=== PATIENT | female | born 1975 | race African-American/Black ===

== ENCOUNTER → 2018-06-10 | Day surgery (SDC) | payer OTHER ==
--- NOTE | 2018-06-14 14:24 | PATH ---
Surgical Pathology Report Patient Name: JOHANN DICKERSON [facility]. Rec. #: [id number] /Age/Gender: 1975 (Age: 43) / F Account: [id number] Location: [facility] Taken: 06/10/2018 Received: 06/10/2018 Reported: 06/11/2018 Physicians: Dodie Main MD Specimen(s) Received RIGHT BREAST MASS Clinical History Nonpalpable lesion Ultrasound findings: Probably benign Final Diagnosis RIGHT BREAST, 1.6 X 1.0 X 0.8 CM MASS, ULTRASOUND GUIDED CORE BIOPSY: BREAST TISSUE WITH HYALINIZED FIBROADENOMA. 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 Electronically Signed Myra Schreiber M.D. Gross Description Received in formalin labeled "right breast," are 4 giles-yellow, cylindrical portions of fibroadipose tissue ranging from 0.4-1.2 cm in length and averaging 0.1 cm in diameter. The specimens are submitted in toto in one cassette. Time to formalin fixation: Less than one minute Total formalin fixation time: Approximately 6 hours. /06/10/2018 saudi/06/10/2018
== END | disposition home or self-care (01) ==
LOC: JRADUS-SUR 10:59
PROVIDERS: ATTEND Family Medicine
PROC: 0HBT3ZX Excision of Right Breast, Percutaneous Approach, Diagnostic (ICD-10-PCS; principal; 2018-06-10)
DX: D24.1 Benign neoplasm of right breast (principal)
CPT/HCPCS: 19083; 87899; 88305-TC